=== PATIENT | female | born 1960 | race Asian ===

== ENCOUNTER 2018-04-18 16:42 | Outpatient (REF) | payer BC, SELFPAY ==
[2018-04-18 19:00] LABS: COMMENT (LAB VIEW ONLY) 121.47 mg/dL; Microalb ug/mg Crea 4.4 ug/mg Cr
== END 2018-04-18 17:02 ==
LOC: NCHCN 16:42
PROVIDERS: PCP Family Medicine; Visit Provider Family Medicine
DX: E11.9 Type 2 diabetes mellitus without complications (principal)
CPT/HCPCS: 82043; 82570

== ENCOUNTER 2018-10-03 10:19 | Outpatient (REF) | payer BC, SELFPAY ==
--- NOTE | 2018-10-03 09:30 | PAPFT_PTH ---
PATIENT: Darrian Card LOC: [facility] U#:[id number] AGE/SX: 58/F ROOM: RE10/03/[address]: Nani Hardy : 1960 BED: DIS: 10/03/2018 SPEC #: [id number] RECD: 10/03/18 13:04 STATUS: FAZAL REMaria #: [id number] CRISTY: 10/03/18 09:[address]: Nani Hardy DEPT: [facility] Cytology RECD BY: Zelda Edwards Tissues: 1 - CX/ENDOCX FOR PAP SMEARS Procedures: PAP THIN PREP/UVM Screening HPV DNA PROBE Comments: [id number]
[2018-10-03 13:36] LABS: Anion Gap 7.1 mmol/L (3-11); BUN 16 mg/dL (7-18); CO2 28.9 mmol/L (21.0-32.0); CREATININE 0.77 mg/dL (0.55-1.02); Calcium 8.8 mg/dL (8.5-10.1); Chloride 102 mmol/L (98-107); Glucose 128 mg/dL (70-100); Potassium 4.1 mmol/L (3.5-5.1); Sodium 138 mmol/L (136-145); TSH (W/Ref FT4) 3.14 uIU/mL (0.358-3.74)
== END 2018-10-03 10:39 ==
LOC: NCHCN 10:19
PROVIDERS: PCP Family Medicine; Visit Provider Family Medicine
DX: R94.6 Abnormal results of thyroid function studies (principal); F33.42 Major depressive disorder, recurrent, in full remission; Z00.00 Encounter for general adult medical examination without abnormal findings; Z12.4 Encounter for screening for malignant neoplasm of cervix; Z11.51 Encounter for screening for human papillomavirus (HPV)
CPT/HCPCS: 80048; 88142; 84443; 87624

== ENCOUNTER 2020-05-20 08:44 | Outpatient (REF) | payer BC, SELFPAY ==
[2020-05-20 20:44] LABS: ALT 28 U/L (14-59); Calculated LDL 136 mg/dL (<100); Cholesterol 214 mg/dL (<200); HDL Cholesterol 53 mg/dL (40-60); Triglyceride 128 mg/dL (<150)
[2020-05-20 20:57] LABS: Hemoglobin A1C 6.6 % (<5.7)
== END 2020-05-20 09:04 ==
LOC: NCHCN 08:44
PROVIDERS: PCP Family Medicine; Visit Provider Family Medicine
DX: E11.9 Type 2 diabetes mellitus without complications (principal)
CPT/HCPCS: 80061; 83036; 84460

== ENCOUNTER 2020-07-15 20:37 | Outpatient (REF) | payer BC, SELFPAY ==
[2020-07-15 20:18] LABS: Microalb ug/mg Crea 5.9 ug/mg Cr
== END 2020-07-15 20:57 ==
LOC: NCHCN 20:37
PROVIDERS: PCP Family Medicine; Visit Provider Family Medicine
DX: E11.9 Type 2 diabetes mellitus without complications (principal); R94.6 Abnormal results of thyroid function studies
CPT/HCPCS: 82043; 82570

== ENCOUNTER 2020-11-04 21:53 | Outpatient (REF) | payer MEDICARE, SELFPAY ==
[2020-11-04 17:05] LABS: Anion Gap 10.2 mmol/L (3-11); BUN 14 mg/dL (7-18); CO2 26.8 mmol/L (21.0-32.0); CREATININE 0.7 mg/dL (0.55-1.02); Chloride 106 mmol/L (98-107); Glucose 129 mg/dL (74-106); Potassium 3.9 mmol/L (3.5-5.1); Sodium 143 mmol/L (136-145); TSH (W/Ref FT4) 2.58 uIU/mL (0.36-3.74)
== END 2020-11-04 21:54 | disposition home or self-care (01) ==
LOC: NCHCN 21:53
PROVIDERS: PCP Family Medicine; Visit Provider Family Medicine
DX: E11.9 Type 2 diabetes mellitus without complications (principal); R94.6 Abnormal results of thyroid function studies
CPT/HCPCS: 80048; 84443

== ENCOUNTER 2021-06-23 03:03 | Outpatient (CLI) | payer BC, SELFPAY ==
--- NOTE | 2021-06-23 10:30 | DI.MAMMO_ITS ---
Exam(s) MAMMO SCREENING EXAM: MAMMO SCREENING CLINICAL HISTORY: SCREENING, Z12.31. TECHNIQUE: Bilateral full field digital CC and MLO mammographic images were obtained with 3D tomosyn thesis and utilizing computer aided detection (CAD). COMPARISON: Prior mammograms dating back to 2012, the most recent being October 2017. FINDINGS: There has been no significant change in the appearance and distribution of the fibroglandular tissue. There are no CAD designations. There are no new spiculated masses nor malignant appearing microcalcification groups. There is no significant architectural distortion nor skin thickening-retraction. IMPRESSION: No radiographic evidence of malignancy. BI-RADS Category 1 - Negative Breast Density - Category B - Scattered areas of fibroglandular density Breast density Category C or D implies that the patient has dense breast tissue. Dense breast tissue can make it harder to find cancer on a mammogram. Dense breast tissue is also associated with an incr eased risk of breast cancer. This information about the result of the mammogram report was provided to the patient to raise their awareness. Use this report when you speak with the patient about their risks for breast cancer, which includes their family history. At that time, you may recommend additional screening tests (Ultrasoun d or MRI) as these tests may add significant information. A negative radiographic report should not delay biopsy if a dominant or clinically suspicious mass is present. Up to ten percent of cancers are not identified on mammography. A negative report may reinforce clinical impression. Adenosis and dense breasts may obscure an underlying neoplasm. False positive reports average 6 to 10%. Patient will receive a letter notifying them of these results.
== END 2021-06-23 03:23 ==
PROVIDERS: PCP Family Medicine; Visit Provider Family Medicine
DX: Z12.31 Encounter for screening mammogram for malignant neoplasm of breast (principal)
CPT/HCPCS: 77063; 77067

== ENCOUNTER 2021-06-23 10:18 | Outpatient (REF) | payer BC, SELFPAY ==
[2021-06-23 15:40] LABS: COMMENT (LAB VIEW ONLY) 73.49 mg/dL; Microalb ug/mg Crea 13.5 ug/mg Cr
== END 2021-06-23 10:19 | disposition home or self-care (01) ==
LOC: NCHCN 10:18
PROVIDERS: PCP Family Medicine; Visit Provider Family Medicine
DX: E11.9 Type 2 diabetes mellitus without complications (principal)
CPT/HCPCS: 82043; 82570

== ENCOUNTER 2021-11-17 15:49 | Outpatient (REF) | payer BC, SELFPAY ==
[2021-11-17 17:50] LABS: HCT 41.2 % (36.0-46.0); HGB 12.9 g/dL (11.2-15.7); MCH 28.4 pg (27.0-33.0); MCHC 31.3 % (32.0-36.0); MCV 91 fL (80-95); MPV 10.7 fL (8.0-11.0); Platelet Count 217 10^3/uL (130-400); RBC 4.55 10^6/uL (3.93-5.22); RDW 12.3 % (11.7-14.6); RDW-SD 40.7 fL; WBC 5.01 10^3/uL (4.4-10.8)
[2021-11-17 17:58] LABS: Hemoglobin A1C 6.9 % (<5.7)
[2021-11-17 18:29] LABS: ALT 33 U/L (14-59); AST 21 U/L (15-37); Albumin 3.5 g/dL (3.4-5.0); Alkaline Phosphatase 94 U/L (46-116); Anion Gap 6.9 mmol/L (3-11); BUN 13 mg/dL (7-18); Bilirubin, Total 0.4 mg/dL (0.2-1.0); CO2 29.1 mmol/L (21.0-32.0); CREATININE 0.8 mg/dL (0.55-1.02); Calcium 8.4 mg/dL (8.5-10.1); Calculated LDL 138 mg/dL (<100); Chloride 107 mmol/L (98-107); Cholesterol 206 mg/dL (<200); Glucose 128 mg/dL (74-106); HDL Cholesterol 49 mg/dL (40-60); Potassium 3.7 mmol/L (3.5-5.1); Sodium 143 mmol/L (136-145); Total Protein 6.9 g/dL (6.4-8.2); Triglyceride 96 mg/dL (<150)
[2021-11-19 09:49] LABS: HIV-1/2 Ag & Ab Screen Negative (Negative)
== END 2021-11-17 15:50 | disposition home or self-care (01) ==
LOC: NCHCN 15:49
PROVIDERS: PCP Family Medicine; Visit Provider Family Medicine
DX: E11.9 Type 2 diabetes mellitus without complications (principal); R63.5 Abnormal weight gain; Z11.4 Encounter for screening for human immunodeficiency virus [HIV]
CPT/HCPCS: 80053; 80061; 85027; 87389; 83036; 84443

== ENCOUNTER 2022-03-27 16:53 | Outpatient (REF) | payer BC, SELFPAY ==
[2022-03-27 20:27] LABS: COMMENT (LAB VIEW ONLY) 65.12 mg/dL
== END 2022-03-27 16:54 | disposition home or self-care (01) ==
LOC: NCHCN 16:53
PROVIDERS: PCP Family Medicine; Visit Provider Family Medicine
DX: E11.9 Type 2 diabetes mellitus without complications (principal)
CPT/HCPCS: 82043; 82570

== ENCOUNTER 2022-07-24 08:08 | Day surgery (SDC) | payer BC, SELFPAY ==
--- NOTE | 2022-07-24 08:14 | W.COLOREPORT ---
Date of service: 07/24/22 Time of Service: 11:00 Colonoscopy Report Procedure Description: Procedures performed: 1. Colonoscopy 2. Snare polypectomy x1 Preoperative diagnosis: Surveillance colonoscopy, colon polyps Postoperative diagnosis: Colon polyps Surgeon: Bernardo Sheikh Anesthesia: Mary Grace Weldon Indication for procedure: 62-year-old woman without any symptoms, prior colonoscopy had adenomatous polyps 7 years ago, no family history of colon cancer due for surveillance. Findings: In the sigmoid colon a large 12-15 mm pedunculated polyp was removed with hot snare technique. Surveillance/follow-up recommendations: 3 years - sooner(6months) if dysplasia is present in the polyp to reassess the site Complications: None Blood loss: Minimal Prep: Excellent Procedure in detail: Written consent was obtained from the patient who was in agreement with the risks, benefits and indications of the procedure.? We went to the endoscopy suite and laid the patient in left lateral decubitus position.? Anesthesia was administered which was tolerated well.? A timeout was performed and when we are all in agreement we began the procedure. Digital rectal exam and visual examination was performed and within normal limits.? A well?lubricated colonoscope was advanced without difficulty all the way to the cecum identified by the ileocecal valve, and triangular folds and appendiceal orifice.? It was then slowly withdrawn.?? Retroflexion was performed in the rectum.? The findings/interventions are noted above. The scope was then removed and the patient tolerated the procedure well and was then taken back to the PACU in hemodynamically stable condition.
[2022-07-24 08:39] VITALS: BP 130/79; PULSE 69; RESP 16; TEMP 36.2; O2SAT 97
[2022-07-24] MEDS: Lactated Ringers 1,000 ML 80 ML IV (08:40)
--- NOTE | 2022-07-24 09:56 | W.ANESPRE ---
General Info Date of Service Date Performed: 07/24/22 Height: 5 ft 1 in Weight: 36.269 kg Body Mass Index (BMI): 15.0 Surgical Procedure: Operation Date: 07/24/22 09:50 Proposed Procedure Side Surgeon p Travis Sheikh MD Meds Allergies and Home Medications Allergies Allergy/AdvReac Type Severity Reaction Status Date / Time No Known Allergies Allergy Unverified 07/24/22 08:35 Home Medication Medication Instructions Recorded fluoxetine 20 mg capsule 20 mg PO DAILY 12/19/15 nabumetone 500 mg tablet 500 mg PO BID PRN 12/19/15 dorzolamide 22.3 mg-timolol 6.8 1 drp OU BID 04/29/16 mg/mL eye drops (Cosopt) atorvastatin 20 mg tablet 20 mg PO QHS 10/10/21 clobetasol 0.05 % topical gel 1 applic topical DAILY 10/10/21 metformin 500 mg tablet 1,000 mg PO DAILY 10/10/21 prednisolone acetate 1 % eye 1 drp ophthalmic (eye) BID 10/10/21 drops,suspension bisacodyl 5 mg tablet,delayed 5 mg PO ONCE #4 tabs 07/09/22 release (Dulcolax (bisacodyl)) polyethylene glycol 3350 17 17 g PO ONCE #238 grams 07/09/22 gram/dose oral powder Current Visit Medications: Current Medications Generic Name Dose Route Start Last Admin Trade Name Freq PRN Reason Stop Dose Admin Ringer's Solution 1,000 mls @ 80 mls/hr 07/24/22 06:00 07/24/22 08:40 IV 08/22/22 23:59 80 mls/hr INFUSION [place]ISON Administration IV Miscellaneous Supplies 1 each 07/24/22 06:00 Iv Access IV 08/22/22 23:59 DIRECTED M[place] Sodium Chloride 0 ml 07/24/22 06:00 Normal Saline Flush 10 Ml Syr IV 08/22/22 23:59 PRN PRN Sodium Chloride 0 ml 07/24/22 06:00 Normal Saline 10 Ml Vial IJ 08/22/22 23:59 DIRECTED PRN Sterile Water 0 ml 07/24/22 06:00 Water,Injection,Sterile 10 Ml Vial IJ 08/22/22 23:59 DIRECTED PRN PFSH Active Problems Active Problems: Problem Status Onset Code Tubular adenoma of colon 04/29/16 D12.6 Constipation K59.00 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 States she can straight ahead and still see's some Surgical History Surgical History Colonoscopy - IV Sedation (04/29/16) Extraction of cataract Tobacco Smoking/Tobacco Use Status: Never Alcohol Alcohol Intake: current Alcohol intake frequency: a few times a month Substance Use Substance use: Never Substance use type: does not use Details: alcohol: unknown Vital Signs and Lab Results Vital Signs Most Recent Vital Signs in EMR: Most Recent Vital Signs Temp Pulse Resp BP Pulse Ox 36.2 C L 69 16 130/79 97 07/24/22 08:39 07/24/22 08:39 07/24/22 08:39 07/24/22 08:39 07/24/22 08:39 Point of Care Results Point of Care Results: Finger Stick Blood Glucose 111 07/24/22 08:48 Lab Results Blood Type / Crossmatch: No Data to Display Complete Blood Count: No Data to Display Complete Metabolic Panel: No Data to Display Liver Function Panel: No Data to Display Coagulation Panel: No Data to Display Cardiac Panel: No Data to Display Arterial Blood Gas: No Data to Display Venous Blood Gas: No Data to Display Pancreas Panel: No Data to Display Thyroid Panel: No Data to Display Infectious Disease: No Data to Display Blood Cultures: No Data to Display Toxicology Panel: No Data to Display Anesthesia Assessment and Plan Anesthesia History Personal History: No History of Anesthesia Complications Family History: No Family History of Anesthesia Complications Exercise Tolerance Exercise Tolerance: Metabolic Equivalents>4 Pertinent Negatives Pertinent Negatives: No Major Cardiovascular Symptoms or Complaints and No Major Pulmonary Symptoms or Complaints Cardiac & Pulmonary Exam Cardiac Exam: Normal S1/S2 Heart Sounds Pulmonary Exam: Clear Bilateral Breath Sounds Implantable Cardiac Device Does patient have a Pacemaker or an ICD?: No Airway Exam Known Difficult Airway: No Mallampati Class: 1 Mouth Opening: Normal (> 3cm) Thyromental Distance: Greater than 3 cm Neck Range of Motion: Full ROM Neck Circumference: Normal Teeth Condition: Normal Dentition ASA Classification ASA Score: ASA 2 Emergency Case?: No NPO Status NPO Status: NPO Clears >2 hours, Solids >8 hours Anesthesia Plan Resuscitation Status: Full Code Anesthesia Technique: General Anesthesia Airway Planned: Natural Airway Monitors Used: Standard Monitors
[2022-07-24 10:34] VITALS: BMI 15.0
--- NOTE | 2022-07-24 10:58 | BOWEL_PTH ---
PATIENT: Darrian Card LOC: [facility] U#:[id number] AGE/SX: 62/F ROOM: RE07/24/[address]: Rik Sheikh : 1960 BED: DIS: 07/24/2022 SPEC #: [id number] RECD: 07/24/22 12:13 STATUS: FAZAL RE #: [id number] CRISTY: 07/24/22 10:[address]: Rik Sheikh DEPT: Surgical Specimen RECD BY: Zelda Edwards ENTERED: 07/24/22 12:13 SP TYPE: Bowel OTHR DR: Nani Hardy Tissues: 1 - BIOPSY BOWEL Procedures: GROSS AND MICRO LEVEL 4 Comments: [id number]
[2022-07-24 11:08] VITALS: BP 117/71; PULSE 57; RESP 16; TEMP 36.1; O2SAT 98
--- NOTE | 2022-07-24 11:15 | W.ANESPOSTOP ---
Postoperative Evaluation Date, Time and Location Date Performed: 07/24/22 Time Performed: 11:13 Patient Location: Day Surgery Unit Vital Signs Most Recent Imported Vital Signs: Most Recent Vital Signs Temp Pulse Resp BP Pulse Ox 36.1 C L 57 L 16 117/71 98 07/24/22 11:08 07/24/22 11:08 07/24/22 11:08 07/24/22 11:08 07/24/22 11:08 Pain Score Most Recent Pain Score: Most Recent Pain Score Pain Level 0 07/24/22 11:08 Assessment Mental Status: Arousable with meaningful communication Airway and Respiratory Function: Patent airway with normal (patient baseline) respiratory exam Cardiovascular Function: Hemodynamically Stable Hydration Status: Adequately Hydrated Nausea & Vomiting: No Nausea or Vomiting Pain: Pt. Denies Any Pain Peripheral Nerve Block: Patient did not receive a nerve block
[2022-07-24 11:38] VITALS: BP 130/64; PULSE 51; RESP 16; TEMP 36.2; O2SAT 99
== END 2022-07-24 11:58 | disposition home or self-care (01) ==
PROVIDERS: PCP Family Medicine; Visit Provider Student in an Organized Health Care Education/Training Program
PROC: 0DJD8ZZ Inspection of Lower Intestinal Tract, Via Natural or Artificial Opening Endoscopic (ICD-10-PCS; CPT 45378; principal; 2022-07-24 09:45)
DX: Z12.11 Encounter for screening for malignant neoplasm of colon (principal); K63.5 Polyp of colon; Z86.010 Personal history of colon polyps
CPT/HCPCS: 45385; 88305

== ENCOUNTER 2024-05-19 09:49 | Outpatient (REF) | payer MEDICARE, BC, SELFPAY ==
[2024-05-19 15:40] LABS: COMMENT (LAB VIEW ONLY) < 13.00 mg/dL
== END 2024-05-19 09:50 | disposition home or self-care (01) ==
LOC: NCHCN 09:49
PROVIDERS: PCP Family Medicine; Visit Provider Family Medicine
DX: E11.9 Type 2 diabetes mellitus without complications (principal)
CPT/HCPCS: 82043; 82570

== ENCOUNTER 2024-08-23 09:28 | Outpatient (REF) | payer MEDICARE, BC, SELFPAY ==
[2024-08-23 15:35] LABS: HCT 42.9 % (36.0-46.0); MCH 28.7 pg (27.0-33.0); MCHC 32.6 % (32.0-36.0); MCV 88 fL (80-95); MPV 10.9 fL (8.0-11.0); Platelet Count 190 10^3/uL (130-400); RBC 4.87 10^6/uL (3.93-5.22); RDW 12.1 % (11.7-14.6); WBC 5.45 10^3/uL (4.4-10.8)
[2024-08-23 16:24] LABS: ALT 24 U/L (14-59); AST 16 U/L (15-37); Albumin 3.8 g/dL (3.4-5.0); Alkaline Phosphatase 82 U/L (46-116); Anion Gap 7.6 mmol/L (3-11); BUN 14 mg/dL (7-18); Bilirubin, Total 0.61 mg/dL (0.2-1.0); CO2 29.4 mmol/L (21.0-32.0); CREATININE 0.9 mg/dL (0.55-1.02); Calcium 9.5 mg/dL (8.5-10.1); Chloride 103 mmol/L (98-107); Estimated GFR 71.39 (mL/min/1.73m2); Glucose 266 mg/dL (74-106); Potassium 3.6 mmol/L (3.5-5.1); Sodium 140 mmol/L (136-145); TSH (W/Ref FT4) 3.67 uIU/mL (0.36-3.74); Total Protein 7.5 g/dL (6.4-8.2)
[2024-08-23 17:34] LABS: Hemoglobin A1C 6.8 % (<5.7)
== END 2024-08-23 09:29 | disposition home or self-care (01) ==
LOC: NCHCN 09:28
PROVIDERS: PCP Family Medicine; Visit Provider Family Medicine
DX: E11.9 Type 2 diabetes mellitus without complications (principal); R94.6 Abnormal results of thyroid function studies
CPT/HCPCS: 80053; 85027; 83036; 84443

== ENCOUNTER 2024-08-30 18:38 | Outpatient (REF) | payer MEDICARE, BC, SELFPAY ==
--- NOTE | 2024-08-30 14:10 | PAPFT_PTH ---
PATIENT: Darrian Card LOC: [facility]#:[id number] AGE/SX: 64/F ROOM: RE08/30/[address]: Nani Hardy : 1960 BED: DIS: 08/30/2024 SPEC #: [id number] RECD: 08/30/24 18:40 STATUS: FAZAL REMaria #: [id number] CRISTY: 08/30/24 14:[address]: Nani Hardy DEPT: [facility] Cytology RECD BY: Zelda Edwards Tissues: 1 - CX/ENDOCX FOR PAP SMEARS Procedures: PAP THIN PREP/[facility] Screening HPV DNA PROBE Comments: [id number] (HPV 16 & 18/45)
== END 2024-08-30 18:39 | disposition home or self-care (01) ==
LOC: NCHCN 18:38
PROVIDERS: PCP Family Medicine; Visit Provider Family Medicine
DX: Z11.51 Encounter for screening for human papillomavirus (HPV) (principal); Z01.419 Encounter for gynecological examination (general) (routine) without abnormal findings
CPT/HCPCS: 88142; 87624

== ENCOUNTER 2025-06-07 21:23 | Outpatient (REF) | payer MEDICARE, BC, SELFPAY ==
[2025-06-07 21:48] LABS: Anion Gap 8.3 mmol/L (3-11); BUN 19 mg/dL (9-23); CO2 28.7 mmol/L (20.0-31.0); Calcium 8.9 mg/dL (8.3-10.6); Chloride 105 mmol/L (98-107); Glucose 142 mg/dL (74-106); Potassium 4.0 mmol/L (3.5-5.1); Sodium 142 mmol/L (136-145)
== END 2025-06-07 21:24 | disposition home or self-care (01) ==
LOC: NCHCN 21:23
PROVIDERS: PCP Family Medicine; Visit Provider Family Medicine
DX: I10 Essential (primary) hypertension (principal)
CPT/HCPCS: 80048; 82043; 82570